=== PATIENT | male | born 2000 | race Caucasian/White ===

== ENCOUNTER 2024-05-03 11:36 | Outpatient (CLI) | payer BC, SELFPAY ==
[2024-05-03 15:18] LABS: GC DNA Amplified* NOT DETECTED (No Detected)
[2024-05-03 21:09] LABS: Chlamydia DNA Amplified* DETECTED (No Detected)
== END 2024-05-03 11:37 | disposition home or self-care (01) ==
LOC: NFLDUCREF 11:36
PROVIDERS: Visit Provider Physician Assistant
DX: R30.0 Dysuria (principal)
CPT/HCPCS: 87491; 87591

== ENCOUNTER 2024-05-31 09:12 | Outpatient (CLI) | payer BC, SELFPAY | END 2024-05-31 09:13 | disposition home or self-care (01) | PROVIDERS: Visit Provider Family Medicine | DX: R30.0 Dysuria (principal); Z11.3 Encounter for screening for infections with a predominantly sexual mode of transmission | CPT/HCPCS: 86703; 87491; 87591 ==